=== PATIENT | male | born 1975 | race Caucasian/White ===

== ENCOUNTER → 2019-08-13 | Outpatient (CLI) | payer BC | END | disposition home or self-care (01) | LOC: LABWHC1 10:58 | PROVIDERS: ATTEND Surgery | DX: Z11.59 Encounter for screening for other viral diseases (principal) ==

== ENCOUNTER 2019-08-17 07:34 | Day surgery (SDC) | payer BC ==
[2019-08-12 15:23] VITALS: BMI 41.3
[~2019-08-17 07:34] MED LIST: LACTATED RINGERS 1,000 ML IV SCH; LIDOCAINE 1% (10MG/ML) FOR IV START INTRADERMA PRN
[2019-08-17 07:56] VITALS: TEMP 97
[2019-08-17] MEDS ORDERED: PROPOFOL 10 MG/ML 20 ML VIAL IV ONE (08:46)
[2019-08-17] MEDS ORDERED: fentaNYL (PF) 50 MCG/ML 2 ML AMP ONE (08:46)
[2019-08-17] MEDS ORDERED: KETAMINE 10 MG/ML 20 ML VIAL ONE (08:46)
[2019-08-17] MEDS ORDERED: ONDANSETRON 4 MG/2 ML VIAL ONE (08:46)
[2019-08-17] MEDS ORDERED: MIDAZOLAM 2 MG/2 ML VIAL ONE (08:46)
--- NOTE | 2019-08-17 08:56 | P.GSHP ---
History of Present Illness H&P Date: 08/17/19 Chief Complaint: Abdominal pain, bloating, nausea and change in bowel habits 44 old male here today for upper and lower endoscopy. Patient will last 6-12 months has had increased bloating, abdominal pain, chronic nausea, change in the caliber of his stools, denies rectal bleeding or melena, no mucus. No weight loss. No changes to his daily medications. No recent travel. Past Medical History Past Medical History: Osteoarthritis (OA), Sleep Apnea/CPAP/BIPAP Additional Past Medical History / Comment(s): DDD History of Any Multi-Drug Resistant Organisms: None Reported Past Surgical History: Appendectomy, Tonsillectomy Additional Past Surgical History / Comment(s): pain clinic procedures, ant cerv fusion C5-6, plates Past Anesthesia/Blood Transfusion Reactions: No Reported Reaction Smoking Status: Former smoker Medications and Allergies Home Medications Medication Instructions Recorded Confirmed Type Chlorzoxazone [Parafon Forte DSC] 500 mg PO TID PRN 08/12/19 08/12/19 History DULoxetine HCL [Cymbalta] 60 mg PO QAM 08/12/19 08/12/19 History Ergocalciferol [Vitamin D2] 50,000 unit PO SA 08/12/19 08/12/19 History Fenofibrate 160 mg PO DAILY 08/12/19 08/12/19 History Gabapentin [Neurontin] 600 mg PO TID 08/12/19 08/12/19 History Lisinopril [Zestril] 10 mg PO QAM 08/12/19 08/12/19 History Loratadine 10 mg PO DAILY 08/12/19 08/12/19 History Naproxen [Naprosyn] 500 mg PO Q12HR 08/12/19 08/12/19 History Pravastatin Sodium [Pravachol] 20 mg PO HS 08/12/19 08/12/19 History Propranolol [Inderal] 20 mg PO TID 08/12/19 08/17/19 History Allergies Allergy/AdvReac Type Severity Reaction Status Date / Time codeine Allergy Hallucinati Verified 08/17/19 07:46 ons Penicillins Allergy Rash/Hives Verified 08/17/19 07:46 Surgical - Exam Vital Signs Temp Pulse Resp BP Pulse Ox 97.0 F L 79 17 126/51 97 08/17/19 07:51 08/17/19 07:51 08/17/19 07:51 08/17/19 07:51 08/17/19 07:51 Physical exam: General: Well-developed, well-nourished HEENT: Normocephalic, sclerae nonicteric Abdomen: Nontender, nondistended Extremities: No edema Neuro: Alert and oriented Assessment and Plan (1) Change in bowel habits Narrative/Plan: Will proceed with upper and lower endoscopy Current Visit: Yes Status: Acute Code(s): R19.4 - CHANGE IN BOWEL HABIT SNOMED Code(s): 849876956
--- NOTE | 2019-08-17 09:21 | P.PCN ---
Date of Procedure: 08/17/19 Procedure(s) Performed: PREOPERATIVE DIAGNOSIS: Abdominal pain, change in bowel habits POSTOPERATIVE DIAGNOSIS: Mild gastritis, rectal polyp PROCEDURE: 1. EGD with biopsy 2. Colonoscopy snare polypectomy ANESTHESIA: MAC SURGEON: Moustapha Priest M.D. SPECIMENS: Antrum, rectal polyp ENDOSCOPIC PROCEDURE: The patient was on the endoscopy table in the left decubitus position. The Olympus gastroscope was inserted into the oropharynx and passed under direct visualization to the region of the third portion of the duodenum. From that point the scope was slowly withdrawn inspecting all surfaces carefully. There were no neoplastic inflammatory or polypoid lesions throughout the duodenum. The pylorus was widely patent. The stomach was carefully inspected. There was mild gastritis present. A biopsy of the antrum took place to rule out H. pylori. Retroflexion revealed a small sliding hiatal hernia. The esophagus was then carefully examined. There were no neoplastic inflammatory or polypoid lesions throughout the visualized esophagus. The patient was kept on the endoscopy table in the left decubitus position. The Olympus colonoscope was inserted into the anus and passed under direct visualization to the base of the cecum. The appendiceal orifice was visualized. From that point the scope was slowly withdrawn inspecting all surfaces carefully. There were no neoplastic inflammatory or polypoid lesions throughout the cecum, ascending, transverse, descending, and sigmoid colon. In the rectum a small polyp was seen and removed using the snare with cautery technique. Retroflexion at the anus was normal. There was no visible diverticulosis. Digital rectal examination was normal. The patient was taken to the recovery room in stable condition per anesthesia guidelines. RECOMMENDATIONS: Await biopsy results. Increase fiber.
[2019-08-17 09:31] VITALS: RESP 16
[2019-08-17 09:45] VITALS: BP 124/56; PULSE 75
== END 2019-08-17 10:12 | disposition home or self-care (01) ==
LOC: ORWHC2ENDO 07:34
PROVIDERS: ATTEND Surgery
DX: D12.8 Benign neoplasm of rectum (principal); K29.50 Unspecified chronic gastritis without bleeding; I10 Essential (primary) hypertension; E78.5 Hyperlipidemia, unspecified; M19.90 Unspecified osteoarthritis, unspecified site; G47.30 Sleep apnea, unspecified; Z88.0 Allergy status to penicillin; Z88.5 Allergy status to narcotic agent; Z79.1 Long term (current) use of non-steroidal anti-inflammatories (NSAID); Z79.899 Other long term (current) drug therapy; Z99.89 Dependence on other enabling machines and devices; Z90.49 Acquired absence of other specified parts of digestive tract; Z90.89 Acquired absence of other organs; Z87.891 Personal history of nicotine dependence; Z98.1 Arthrodesis status
CPT/HCPCS: 88305; 45385; 43239; J2250; J2405; J3010; J2704